=== PATIENT | male | born 1995 | race Caucasian/White ===

== ENCOUNTER 2022-12-13 16:38 | Emergency (ER) | payer MEDICAID ==
[~2022-12-13] VITALS: Ht 177.8 cm; Wt 83.9 kg
[2022-12-13 17:40] LABS: BASO% 0.4 % (0-3); EOS% 0.7 % (0-8); HEMATOCRIT 45.5 % (39.0-50.0); HEMOGLOBIN 15.4 g/dl (14.0-18.0); IMMATURE GRANULOCYTES 0.1 % (0.0-5.0); MEAN CELL VOLUME 84.7 fL CALC (80.0-100.0); MEAN CORPUSCULAR HGB 28.7 pG CALC (26.0-32.0); MEAN CORPUSCULAR HGB CONC 33.8 g/dL CAL (32.0-36.0); MONO% 7.5 % (2-13); NEUT# 6.88 thou/uL (1.82-7.42); NEUT% 73.3 % (42-76); RED BLOOD COUNT 5.37 mill/uL (4.70-6.10); RED CELL DISTRI WIDTH 12.7 % (11.5-15.5)
[2022-12-13 17:53] LABS: ALBUMIN 5.5 g/dL (3.2-5.0); ALKALINE PHOSPHATASE 105 u/l (38-126); ANION GAP 17 (6-22 (CALC)); BILIRUBIN, TOTAL 0.7 mg/dL (0.2-1.3); BUN 10 mg/dL (9-20); BUN/CREATININE RATIO 11 (12-20 (CALC)); CARBON DIOXIDE 29 mmol/l (22-30); CHLORIDE 100 mmol/l (95-108); CREATININE 0.9 mg/dL (0.7-1.3); GFR FOR AFR.AMER. > 60 ML/MIN (>=60 (CALC)); GFR OTHER RACES > 60 ML/MIN (>=60 (CALC)); INTERNATIONAL NORMALIZED RATIO 1.1 RATIO (0.7-1.3); LIPASE 31 u/l (23-300); POTASSIUM 3.5 mmol/l (3.5-5.1); PROTHROMBIN TIME 10.5 SECONDS (9.0-12.5); SGOT/AST 50 u/l (17-59); SODIUM 144 mmol/l (137-146); TOTAL PROTEIN 9.8 g/dL (6.3-8.2)
[2022-12-13 18:00] VITALS: BP 125/86
[2022-12-13 18:17] VITALS: BP 141/79
[2022-12-13 18:31] VITALS: BP 133/79
[2022-12-13 18:50] VITALS: BP 133/79
== END 2022-12-13 18:50 | disposition left against medical advice (07) ==
LOC: ED 16:38
PROVIDERS: Nurse Practitioner
DX: K92.1 Melena (principal); K92.0 Hematemesis; R10.13 Epigastric pain; F17.210 Nicotine dependence, cigarettes, uncomplicated; Z53.29 Procedure and treatment not carried out because of patient's decision for other reasons
CPT/HCPCS: S0164